=== PATIENT | male | born 1965 | race Caucasian/White ===

== ENCOUNTER 2019-07-14 08:37 | Inpatient (IN) | payer OTHER ==
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
[2019-07-14 09:46] VITALS: BMI 31.7
[2019-07-14] MEDS ORDERED: BISMUTH SUBSALICYLATE 524 MG/30 ML UD PO PRN (09:52)
[2019-07-14] MEDS ORDERED: MELATONIN 5 MG TABLETS PO PRN (09:52)
[2019-07-14] MEDS ORDERED: MAGNESIUM CITRATE 300 ML BOTTLE PO PRN (09:52)
[2019-07-14] MEDS ORDERED: IBUPROFEN 400 MG TABLET (FP) PO PRN (09:52)
[2019-07-14] MEDS ORDERED: hydrOXYzine PAMOATE 25 MG CAPSULE (FP) PO PRN (09:52)
[2019-07-14] MEDS ORDERED: MENTHOL/PHENOL 1 EACH UD MM PRN (09:52)
[2019-07-14] MEDS ORDERED: ACETAMINOPHEN 325 MG TABLET (FP) PO PRN ×2 (09:52)
[2019-07-14] MEDS ORDERED: MAGNESIUM HYDROX 2400MG/30ML ORAL SUSPENSION 30 ML CUP PO PRN (09:52)
[2019-07-14] MEDS ORDERED: MAG HYDROX/AL HYDROX/SIMETH 30 ML UNIT-DOSE CUP PO PRN (09:52)
[2019-07-14] MEDS ORDERED: METHOCARBAMOL 500 MG TABLET PO PRN (09:52)
[2019-07-14] MEDS ORDERED: METHADONE HCL 10 MG TABLET (FOR DETOX USE ONLY) PO ONE (09:52)
[2019-07-14] MEDS ORDERED: NICOTINE 7 MG/24 HOURS TOPICAL PATCH TD SCH (10:00)
[2019-07-14] MEDS ORDERED: PRENATAL VITAMINS W/ FOLIC ACID TABLET (FP) PO SCH (10:00)
[2019-07-14] MEDS ORDERED: KETOCONAZOLE 2% CREAM - 60GM TUBE TP SCH (10:00)
[2019-07-14] MEDS ORDERED: clonazePAM 0.5 MG TABLET PO ONE (11:00)
[2019-07-14] MEDS: cloNIDine HCL 0.1 MG TABLET PO PRN ×2 (11:26→22:14)
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
[2019-07-14 14:55] LABS: HEMATOCRIT 39.3 % (35.4-49); HEMOGLOBIN 13.3 GM/dL (11.7-16.9); MCH 30.4 pg (25.7-33.7); MCHC 33.7 g/dl (32.0-35.9); MEAN CELL VOLUME 90.2 fl (80-96); MEAN PLT VOLUME 12.1 fl (7.5-11.1); PLATELET COUNT 151 K/MM3 (134-434); RBC 4.36 M/mm3 (4.00-5.60); RDW 13.4 % (11.9-15.9); WHITE BLOOD COUNT 8.3 K/mm3 (4.0-10.0)
[2019-07-14 15:14] LABS: ALBUMIN 3.6 g/dl (3.4-5.0); BILIRUBIN,TOTAL 0.4 mg/dL (0.2-1); BLOOD UREA NITROGEN 28.1 mg/dL (7-18); CALCIUM 9.4 mg/dL (8.5-10.1); CREATININE 2.6 mg/dL (0.55-1.3); POTASSIUM 4.5 mmol/L (3.5-5.1); TOT PROT 6.7 g/dl (6.4-8.2)
[2019-07-14] MEDS ORDERED: SUVOREXANT 10 MG TABLET PO ONE (21:00)
[2019-07-14] MEDS ORDERED: THIAMINE HCL 100 MG TABLET (FP) PO SCH (22:00)
[2019-07-14] MEDS ORDERED: SUVOREXANT 10 MG TABLET PO PRN (22:00)
[2019-07-15 05:57] VITALS: BP 127/75; PULSE 48; TEMP 97.5
[2019-07-15] MEDS: cloNIDine HCL 0.1 MG TABLET PO PRN (07:58)
[2019-07-15] MEDS ORDERED: METHADONE (DETOX) 20 MG, METHADONE (DETOX) 5 MG PO ONE (10:00)
[2019-07-15] MEDS ORDERED: POLYETHYLENE GLYCOL 3350 255 GM BTL PO SCH (10:00)
--- NOTE | 2019-07-15 10:06 | DS ---
[facility] Detox Discharge Summary Admission Date: 07/14/19 Discharge Date: 07/15/19 - History Present History: Opioid Dependence Additional Comments: 54 years old male admitted on 07/14/19 for opiate withdrawal sx management positive benzo and opioid urine tox treated with methadone and clonidine prn detox regimen patient reported that he was in methadone program last attended MAT "two weeks" ago patient refuses methadone "I do not want methadone" "I am done with methadone" due to positive methadone urine tox upon admission suboxone detox not appropriate at this time recommend valium detox regimen patient demands klonopin patient rejects klonopin detox regimen that "I am taking klonopin every day" patient refuses klonopin detox patient refuses valium detox patient refuses ativan detox patient refuses clonidine detox "clonidine does not do xxx" that patient demand to take klonopin every day as his doctor prescribed discuss purpose of detox that the patient may return to klonopin 2 mg po daily provider last 30 days filled 06/18/19 Pertinent Past History: patient insists to leave the detox unit due to unable to received klonopin 2 mg po daily patient is alert oriented x 3 speech clearly coherently steady gait refuses cows ciwa refuses discharge physical examine patient walks out the unit independently - Physical Exam Results Vital Signs: Vital Signs Temperature 97.5 F L 07/15/19 05:57 Pulse Rate 48 L 07/15/19 05:57 Respiratory Rate 16 07/15/19 05:57 Blood Pressure 127/75 07/15/19 05:57 O2 Sat by Pulse Oximetry (%) Pertinent Admission Physical Exam Findings: opiate withdrawal sx Laboratory Last Values WBC 8.3 K/mm3 (4.0-10.0) 07/14/19 10:10 RBC 4.36 M/mm3 (4.00-5.60) 07/14/19 10:10 Hgb 13.3 GM/dL (11.7-16.9) 07/14/19 10:10 Hct 39.3 % (35.4-49) 07/14/19 10:10 MCV 90.2 fl (80-96) 07/14/19 10:10 MCH 30.4 pg (25.7-33.7) 07/14/19 10:10 MCHC 33.7 g/dl (32.0-35.9) 07/14/19 10:10 RDW 13.4 % (11.9-15.9) 07/14/19 10:10 Plt Count 151 K/MM3 (134-434) D 07/14/19 10:10 MPV 12.1 fl (7.5-11.1) H 07/14/19 10:10 Sodium 134 mmol/L (136-145) L 07/14/19 10:10 Potassium 4.5 mmol/L (3.5-5.1) 07/14/19 10:10 Chloride 101 mmol/L (98-107) 07/14/19 10:10 Carbon Dioxide 26 mmol/L (21-32) 07/14/19 10:10 Anion Gap 7 MMOL/L (8-16) L 07/14/19 10:10 BUN 28.1 mg/dL (7-18) H 07/14/19 10:10 Creatinine 2.6 mg/dL (0.55-1.3) H 07/14/19 10:10 Est GFR (CKD-EPI)AfAm 31.45 07/14/19 10:10 Est GFR (CKD-EPI)NonAf 27.14 07/14/19 10:10 Random Glucose 112 mg/dL (74-106) H 07/14/19 10:10 Calcium 9.4 mg/dL (8.5-10.1) 07/14/19 10:10 Total Bilirubin 0.4 mg/dL (0.2-1) 07/14/19 10:10 AST 39 U/L (15-37) H 07/14/19 10:10 ALT 43 U/L (13-61) 07/14/19 10:10 Alkaline Phosphatase 115 U/L (45-117) 07/14/19 10:10 Total Protein 6.7 g/dl (6.4-8.2) 07/14/19 10:10 Albumin 3.6 g/dl (3.4-5.0) 07/14/19 10:10 lab noted - Treatment Hospital Course: Detox Protocol Followed Patient has Accepted a Rehab Referral to: return to [facility] provider - Medication Discharge Medications: Ambulatory Orders Sertraline HCl [Zoloft -] 100 mg PO BID PRN 10/03/15 Amlodipine Besylate [Norvasc -] 5 mg PO DAILY 07/14/19 Baclofen 5 mg PO BID 07/14/19 Clonazepam [Klonopin] 2 mg PO DAILY 07/14/19 Ketoconazole 2% Cream [Nizoral 2% Cream -] 1 applic TP DAILY 07/14/19 Polyethylene Glycol 3350 [Miralax (For Bowel Prep) -] 17 gm PO DAILY 07/14/19 Zolpidem Tartrate [Ambien] 10 mg PO HS 07/14/19 Naloxone HCl [Narcan] 4 mg NS ASDIR PRN #1 spray 07/15/19 - Diagnosis (1) Hepatitis C virus infection cured after antiviral drug therapy Current Visit: Yes Status: Resolved (2) Nicotine dependence Current Visit: Yes Status: Acute Qualifiers: Nicotine product type: cigarettes Substance use status: in withdrawal Qualified Code(s): F17.213 - Nicotine dependence, cigarettes, with withdrawal (3) Opioid dependence, uncomplicated Current Visit: Yes Status: Acute (4) Substance induced mood disorder Current Visit: Yes Status: Suspected (5) Hepatitis C Current Visit: Yes Status: Chronic Qualifiers: Viral hepatitis chronicity: chronic Hepatic coma status: without hepatic coma Qualified Code(s): B18.2 - Chronic viral hepatitis C - AMA Did Patient Leave Against Medical Advice: Yes
--- NOTE | 2019-07-15 10:54 | EKG ---
Test Reason : Blood Pressure : / mmHG Vent. Rate : 051 BPM Atrial Rate : 051 BPM P-R Int : 170 ms QRS Dur : 100 ms QT Int : 454 ms P-R-T Axes : 028 051 044 degrees QTc Int : 418 ms SINUS BRADYCARDIA OTHERWISE NORMAL ECG NO PREVIOUS ECGS AVAILABLE Confirmed by REY BHAGAT, FIORELLA ([id number]) on 07/15/2019 10:54:03 AM Referred By: Dillan Veloz Confirmed By:FIORELLA LE MD
[2019-07-16] MEDS ORDERED: METHADONE HCL 10 MG TABLET (FOR DETOX USE ONLY) PO ONE (10:00)
[2019-07-17] MEDS ORDERED: METHADONE (DETOX) 10 MG, METHADONE (DETOX) 5 MG PO ONE (10:00)
[2019-07-18] MEDS ORDERED: METHADONE HCL 10 MG TABLET (FOR DETOX USE ONLY) PO ONE (10:00)
[2019-07-19] MEDS ORDERED: METHADONE HCL 5 MG TABLET (FOR DETOX USE ONLY) PO ONE (06:00)
== END 2019-07-15 09:10 | disposition left against medical advice (07) | DRG 894 ==
LOC: YASAS 08:37 → Y3N 10:20
PROVIDERS: ADMIT Allergy & Immunology; ATTEND Allergy & Immunology
PROC: HZ2ZZZZ Detoxification Services for Substance Abuse Treatment (ICD-10-PCS; principal; 2019-07-14)
DX: F11.23 Opioid dependence with withdrawal (principal); F13.20 Sedative, hypnotic or anxiolytic dependence, uncomplicated; F14.20 Cocaine dependence, uncomplicated; F12.20 Cannabis dependence, uncomplicated; F17.210 Nicotine dependence, cigarettes, uncomplicated; F19.24 Other psychoactive substance dependence with psychoactive substance-induced mood disorder; F43.10 Post-traumatic stress disorder, unspecified; I10 Essential (primary) hypertension; K74.69 Other cirrhosis of liver; G47.00 Insomnia, unspecified; B35.3 Tinea pedis; Z91.19 Patient's noncompliance with other medical treatment and regimen; Z88.0 Allergy status to penicillin; Z86.19 Personal history of other infectious and parasitic diseases; Z86.69 Personal history of other diseases of the nervous system and sense organs
CPT/HCPCS: 36415; 80053; 85027; 86593; 93005; 93010; J0735

== ENCOUNTER 2019-08-25 10:47 | Inpatient (IN) | payer OTHER ==
--- NOTE | 2019-08-25 12:42 | HP ---
COWS - Scale Resting Pulse: 1= [place] 81-100 Sweatin= Chills/Flushing Restless Observation: 1= Difficult to Sit Still Pupil Size: 1= Pupils >than Normal Bone or Joint Aches: 1= Mild Discomfort Runny Nose/ Eye Tearin= Runny Nose/Eyes GI Upset > 30mins: 2= Nausea/Diarrhea Tremor Observation: 2= Slight Tremor Visible Yawning Observation: 1= 1-2x During Session Anxiety or Irritability: 1=Feels Anxious/Irritable Goose Flesh Skin: 3=Piloerection COWS Score: 16 CIWA Score - Admission Criteria OASAS Guidelines: Admission for Medically Managed Detox: Requires at least one of the followin. CIWA greater than 12 2. Seizures within the past 24 hours 3. Delirium tremens within the past 24 hours 4. Hallucinations within the past 24 hours 5. Acute intervention needed for co occurring medical disorder 6. Acute intervention needed for co occurring psychiatric disorder 7. Severe withdrawal that cannot be handled at a lower level of care (continued vomiting, continued diarrhea, abnormal vital signs) requiring intravenous medication and/or fluids 8. Admitting History and Physical - Admission History Source: Patient - Past Medical History Cardiovascular: Yes: HTN Renal/: Yes: Renal Inusuff Psych: Yes: Addictions, Anxiety - Smoking History Smoking history: Former smoker Have you smoked in the past 12 months: Yes Aproximately how many cigarettes per day: 5 If you are a former smoker, when did you quit?: 1 month - Alcohol/Substance Use Hx Alcohol Use: No History of Substance Use: reports: Heroin - Social History Usual Living Arrangement: Yes: Alone, Other (has own apartment) ADL: Support Services (on disability) Admission [facility] Chief Complaint: It's a waste of me, of everything, to keep using - I need to stop Allergies/Adverse Reactions: Allergies Allergy/AdvReac Type Severity Reaction Status Date / Time amoxicillin Allergy Intermediate Hives Verified 08/25/19 11:53 Penicillins Allergy Intermediate Hives Verified 08/25/19 11:53 History of Present Illness: 54 yo gentleman here for detox from opiates. Patient last used opiates three days ago but is having 'awful' withdrawal symptoms- history of overdose three weeks ago - history of black outs, history of seizures. He is worried if he is not admitted he will use heroin. Patient was on methadone program at [facility] for 10 years until July 2019 - he came off it and relapsed. He was in [place] on 08/21/18 for 24 hour psych observation (depression), came out and used on 08/22 (urine tox + bzo only - is Rx clonazepam for PTSD). Patient uses heroin about 3-4 bags intravenously or intranasal and has since his 20s. He is on disability for PTSD, is on meds and sees psych. Given his long history of opiate use and concurrent withdrawal symptoms will give suboxone detox protocol - he is interested in possibly going on a suboxone program when he is discharged. Others' Prescriptions Patient Name: Jose Blake Date: 1965 Address: [address] [place] [address] Sex: Male Rx Written Rx Dispensed Drug Quantity Days Supply Prescriber Name 08/16/2019 08/16/2019 clonazepam 2 mg tablet 30 30 Urmila Mac ([employer]) 08/16/2019 08/16/2019 zolpidem tartrate 10 mg tablet 30 30 Urmila Mac ([employer]) 07/31/2019 07/31/2019 clonazepam 1 mg tablet 28 14 Camilo Atkins MD 07/04/2019 07/04/2019 methylphenidate 20 mg tablet 90 30 Lyubov Garcia MD 07/04/2019 07/04/2019 lorazepam 0.5 mg tablet 120 30 Lyubov Garcia MD Patient Name: Jose Blake Date: 1965 Address: [address] [place], [place] [id number] Sex: Male Rx Written Rx Dispensed Drug Quantity Days Supply Prescriber Name 07/16/2019 07/22/2019 zolpidem tartrate 10 mg tablet 30 30 Hammad Maca ([employer]) 07/16/2019 07/22/2019 clonazepam 2 mg tablet 30 30 Urmila Mac ([employer]) 06/18/2019 06/23/2019 zolpidem tartrate 10 mg tablet 30 30 CalderonHammad Yoona ([employer]) 06/18/2019 06/23/2019 clonazepam 2 mg tablet 30 30 Urmila Mac ([employer]) 05/21/2019 05/24/2019 clonazepam 2 mg tablet 30 30 Robson Hrust ([employer]) 05/21/2019 05/24/2019 zolpidem tartrate 10 mg tablet 30 30 Aris Robson Beckford ([employer]) 04/17/2019 04/25/2019 clonazepam 2 mg tablet 30 30 Calderon-Urmila Loera ([employer]) 04/17/2019 04/25/2019 zolpidem tartrate 10 mg tablet 30 30 Calderon-Hammad Loeraa ([employer]) 03/19/2019 03/27/2019 zolpidem tartrate 10 mg tablet 30 30 Calderon-Evaristo Urmila ([employer]) 03/19/2019 03/27/2019 clonazepam 2 mg tablet 30 30 Calderon-Evaristo Urmila ([employer]) 02/26/2019 02/26/2019 zolpidem tartrate 10 mg tablet 30 30 Calderon-Hammad Loeraa ([employer]) 02/26/2019 02/26/2019 clonazepam 2 mg tablet 30 30 Calderon-Hammad Loeraa ([employer]) 01/19/2019 01/28/2019 zolpidem tartrate 10 mg tablet 30 30 Calderon-Evaristo Urmila ([employer]) 01/19/2019 01/28/2019 clonazepam 2 mg tablet 30 30 Calderon-Evaristo Urmila ([employer]) 12/28/2018 12/30/2018 zolpidem tartrate 10 mg tablet 30 30 Lucaghassan , Kelechi 12/28/2018 12/30/2018 clonazepam 2 mg tablet 30 30 Lucaj, Kelechi 11/30/2018 11/30/2018 clonazepam 2 mg tablet 30 30 Mcgahee, Sam R ([facility]-[employer]) 11/30/2018 11/30/2018 zolpidem tartrate 10 mg tablet 30 30 Mcgahee, Sam R ([facility]-[employer]) 10/24/2018 11/01/2018 clonazepam 2 mg tablet 30 30 Calderon-Evaristo Urmila ([employer]) 10/24/2018 11/01/2018 zolpidem tartrate 10 mg tablet 30 30 Calderon-Evaristo Urmila ([employer]) 10/02/2018 10/02/2018 zolpidem tartrate 10 mg tablet 30 30 Mcgahee, Sam R ([facility]-[employer]) 10/02/2018 10/02/2018 clonazepam 2 mg tablet 30 30 Mcgahee, Sam R ([facility]-[employer]) 08/24/2018 09/02/2018 clonazepam 2 mg tablet 30 30 Urmila Berg ([employer]) 08/24/2018 09/02/2018 zolpidem tartrate 10 mg tablet 30 30 Urmila Berg ([employer]) Exam Limitations: Clinical Condition - Ebola screening Have you traveled outside of the country in the last 21 days: No (N) Have you had contact with anyone from an Ebola affected area: No Do you have a fever: No - Review of Systems Constitutional: Chills, Loss of Appetite, Malaise, Night Sweats, Changes in sleep, Weakness EENT: reports: Nose Congestion Respiratory: reports: No Symptoms reported Cardiac: reports: No Symptoms Reported GI: reports: Diarrhea, Abdominal cramping : reports: No Symptoms Reported Musculoskeletal: reports: Back Pain, Muscle Pain Integumentary: reports: Dryness Neuro: reports: Headache, Tremors Endocrine: reports: No Symptoms Reported Hematology: reports: No Symptoms Reported Psychiatric: reports: Judgement Intact, Mood/Affect Appropiate, Orientated x3, Anxious Other Systems: Reviewed and Negative Patient History - Patient Medical History Hx Anemia: No Hx Asthma: No Hx Chronic Obstructive Pulmonary Disease (COPD): No Hx Cancer: No Hx Cardiac Disorders: Yes (pericarditis 2013) Hx Congestive Heart Failure: No Hx Hypertension: Yes Hx Hypercholesterolemia: No Hx Pacemaker: No HX Cerebrovascular Accident: No Hx Seizures: Yes (drug related 3 weeks ago) Hx Diabetes: No Hx Gastrointestinal Disorders: No Hx Liver Disease: Yes (cirrhosis; hx hep C treated) Hx Genitourinary Disorders: No Hx Sexually Transmitted Disorders: No Hx Renal Disease (ESRD): No Hx Thyroid Disease: No Hx Human Immunodeficiency Virus (HIV): No Hx Hepatitis C: Yes (was treated 2012 and 'cured' ) Hx Depression: Yes (with PTSD - on meds, sees psych - hx hospitalizations) Hx Suicide Attempt: No (ideation) Hx Bipolar Disorder: No Hx Schizophrenia: No - Patient Surgical History Past Surgical History: Yes Hx Neurologic Surgery: No Hx Cataract Extraction: No Hx Cardiac Surgery: No Hx Lung Surgery: No Hx Breast Surgery: No Hx Breast Biopsy: No Hx Abdominal Surgery: No Hx Appendectomy: No Hx Cholecystectomy: No Hx Genitourinary Surgery: No Hx Section: No Hx Orthopedic Surgery: Yes (LEFT ANKLE SX ORIF 2010) Other Surgical History: 16 ULISES IN THE HEAD 2010 Anesthesia Reaction: No - PPD History Date: 09/01/15 Results: 0 mm - Reproductive History Patient is a Female of Child Bearing Age (11 -55 yrs old): No - Smoking Cessation Smoking history: Former smoker Have you smoked in the past 12 months: Yes Aproximately how many cigarettes per day: 5 If you are a former smoker, when did you quit?: 1 month Hx Chewing Tobacco Use: No Initiated information on smoking cessation: No - Substance & Tx. History Hx Alcohol Use: Yes (none x 8 years) Hx Substance Use: Yes Substance Use Type: Heroin Hx Substance Use Treatment: Yes (detox, methadone program) - Substances abused Heroin Substance route: Injection Frequency: 3-6 times per week Amount used: 4 bags Age of first use: 29 Date of last use: 08/22/19 Admission Physical Exam BHS - Vital Signs Vital Signs: Vital Signs - 24 hr 08/25/19 11:58 Temperature 97.9 F Pulse Rate 87 Respiratory 18 Rate Blood Pressure 157/109 H - Physical General Appearance: Yes: Nourished, Appropriately Dressed, Moderate Distress, Tremorous, Anxious HEENTM: Yes: EOMI, Hearing grossly Normal, Normocephalic, Normal Voice, Pharynx Normal, Nasal Congestion Respiratory: Yes: Normal Breath Sounds, No Respiratory Distress Neck: Yes: No masses,lesions,Nodules Breast: Yes: Breast Exam Deferred Cardiology: Yes: Regular Rhythm, Regular Rate Abdominal: Yes: Soft Genitourinary: Yes: Nocturia Back: Yes: Normal Inspection Musculoskeletal: Yes: Gait Steady, Back pain, Muscle Pain, Other (left ankle pain) Extremities: Yes: Tremors, Other Neurological: Yes: Fully Oriented, Alert, Motor Strength 5/5, Normal Mood/Affect , Normal Response Integumentary: Yes: Normal Color, Warm Lymphatic: Yes: Within Normal Limits - Diagnostic (1) Opioid dependence with withdrawal Current Visit: Yes Status: Chronic (2) Cirrhosis Current Visit: Yes Status: Chronic Qualifiers: Hepatic cirrhosis type: other cirrhosis Qualified Code(s): K74.69 - Other cirrhosis of liver (3) History of seizure Current Visit: Yes Status: Chronic (4) PTSD (post-traumatic stress disorder) Current Visit: Yes Status: Chronic Comment: As per self-report. (5) Sedative dependence Current Visit: Yes Status: Chronic Comment: prescribed (denies abusing them ) (6) Tinea pedis Current Visit: Yes Status: Chronic Qualifiers: Laterality: bilateral Qualified Code(s): B35.3 - Tinea pedis (7) Hepatitis C virus infection cured after antiviral drug therapy Current Visit: Yes Status: Inactive Cleared for Admission [facility] - Detox or Rehab [facility] Level of Care: Medically Managed Detox Regimen/Protocol: Suboxone Breathalyzer - Breathalyzer Breathalyzer: 0 Urine Drug Screen - Test Device Lot number: [id number] Expiration date: 04/04/21 - Control Is test valid?: Yes - Results Drug screen NEGATIVE: No Urine drug screen results: BZO-Benzodiazepines Inpatient Rehab Admission - Rehab Decision to Admit Inpatient rehab admission?: No
[2019-08-25] MEDS ORDERED: MAG HYDROX/AL HYDROX/SIMETH 30 ML UNIT-DOSE CUP PO PRN (13:07)
[2019-08-25] MEDS ORDERED: IBUPROFEN 400 MG TABLET (FP) PO PRN (13:07)
[2019-08-25] MEDS ORDERED: ACETAMINOPHEN 325 MG TABLET (FP) PO PRN ×2 (13:07)
[2019-08-25] MEDS ORDERED: MAGNESIUM CITRATE 300 ML BOTTLE PO PRN (13:07)
[2019-08-25] MEDS ORDERED: BACLOFEN 10 MG TABLET (FP) PO PRN (13:07)
[2019-08-25] MEDS ORDERED: MELATONIN 5 MG TABLETS PO PRN (13:07)
[2019-08-25] MEDS ORDERED: hydrOXYzine PAMOATE 25 MG CAPSULE (FP) PO PRN (13:07)
[2019-08-25] MEDS ORDERED: MENTHOL/PHENOL 1 EACH UD MM PRN (13:07)
[2019-08-25] MEDS ORDERED: MAGNESIUM HYDROX 2400MG/30ML ORAL SUSPENSION 30 ML CUP PO PRN (13:07)
[2019-08-25] MEDS ORDERED: BISMUTH SUBSALICYLATE 524 MG/30 ML UD PO PRN (13:07)
[2019-08-25] MEDS ORDERED: BUPRENORPHINE/NALOXONE 8 MG/2 MG FILM PACKET SL ONE (13:13)
[2019-08-25] MEDS ORDERED: POLYETHYLENE GLYCOL 3350 255 GM BTL PO SCH (13:15)
[2019-08-25] MEDS: clonazePAM 0.5 MG TABLET PO PRN ×2 (15:41→21:59)
[2019-08-25] MEDS: amLODIPine BESYLATE 5 MG TABLET (FP) PO SCH (17:01)
[2019-08-25] MEDS: THIAMINE HCL 100 MG TABLET (FP) PO SCH (21:59)
[2019-08-25] MEDS: KETOCONAZOLE 2% CREAM - 60GM TUBE TP SCH ×2 (22:57→22:58)
[2019-08-26] MEDS: clonazePAM 0.5 MG TABLET PO PRN ×4 (04:01→23:09)
--- NOTE | 2019-08-26 07:46 | CONSULT ---
[facility] Psychiatric Consult - Data Date of interview: 08/26/19 Admission source: [facility] Identifying data: Compacting Machine Operator/Tender approached patient for psychiatric consultation. Patient reported feeling tired and preferred to speak to fiction writer at another time. Psychiatric consultation refused. Please reorder psychiatric consultation if requested by patient.
[2019-08-26] MEDS ORDERED: BUPRENORPHINE/NALOXONE 2 MG/0.5 MG FILM PACKET SL ONE (10:00)
[2019-08-26] MEDS: POLYETHYLENE GLYCOL 3350 119 GM BTL PO SCH (10:38)
[2019-08-26 10:39] LABS: HEMATOCRIT 44.3 % (35.4-49); HEMOGLOBIN 14.8 GM/dL (11.7-16.9); MCHC 33.5 g/dl (32.0-35.9); MEAN CELL VOLUME 92.6 fl (80-96); MEAN PLT VOLUME 12.4 fl (7.5-11.1); PLATELET COUNT 120 K/MM3 (134-434); RBC 4.78 M/mm3 (4.00-5.60); RDW 14.9 % (11.9-15.9); WHITE BLOOD COUNT 6.4 K/mm3 (4.0-10.0)
[2019-08-26] MEDS: PRENATAL VITAMINS W/ FOLIC ACID TABLET (FP) PO SCH (10:40)
[2019-08-26] MEDS: amLODIPine BESYLATE 5 MG TABLET (FP) PO SCH (10:40)
--- NOTE | 2019-08-26 10:44 | PN ---
BHS COWS - Scale Resting Pulse: 0= [place] 80 or Below Sweatin= Chills/Flushing Restless Observation: 0= Sits Still Pupil Size: 1= Pupils >than Normal Bone or Joint Aches: 1= Mild Discomfort Runny Nose/ Eye Tearin= Runny Nose/Eyes GI Upset > 30mins: 1= Stomach Cramp Tremor Observation of Outstretched Hands: 2= Slight Tremor Visible Yawning Observation: 1= 1-2x During Session Anxiety or Irritability: 1=Feels Anxious/Irritable Goose Flesh Skin: 3=Piloerection COWS Score: 13 BHS Progress Note (SOAP) Subjective: 54 years old male admitted on 08/25/19 for opiate withdrawal sx management treating with suboxone detox regimen ate breakfast tolerated food and fluid well ambulating on hallway social with peers in day room encourage to picking crew supervisor narcan from pharmacy upon discharged Objective: 08/26/19 10:54 Vital Signs Temperature 99.0 F 08/26/19 09:12 Pulse Rate 80 08/26/19 09:12 Respiratory Rate 18 08/26/19 09:12 Blood Pressure 126/83 08/26/19 09:12 O2 Sat by Pulse Oximetry (%) Laboratory Last Values WBC 6.4 K/mm3 (4.0-10.0) 08/26/19 07:35 RBC 4.78 M/mm3 (4.00-5.60) 08/26/19 07:35 Hgb 14.8 GM/dL (11.7-16.9) 08/26/19 07:35 Hct 44.3 % (35.4-49) 08/26/19 07:35 MCV 92.6 fl (80-96) 08/26/19 07:35 MCH 31.0 pg (25.7-33.7) 08/26/19 07:35 MCHC 33.5 g/dl (32.0-35.9) 08/26/19 07:35 RDW 14.9 % (11.9-15.9) D 08/26/19 07:35 Plt Count 120 K/MM3 (134-434) L D 08/26/19 07:35 MPV 12.4 fl (7.5-11.1) H 08/26/19 07:35 lab noted Assessment: 08/26/19 10:54 opiate withdrawal Plan: suboxone regimen
[2019-08-26 10:54] LABS: ALBUMIN 3.5 g/dl (3.4-5.0); BILIRUBIN,TOTAL 0.6 mg/dL (0.2-1); BLOOD UREA NITROGEN 11.7 mg/dL (7-18); CALCIUM 8.6 mg/dL (8.5-10.1); CREATININE 0.7 mg/dL (0.55-1.3); POTASSIUM 4.3 mmol/L (3.5-5.1); TOT PROT 6.3 g/dl (6.4-8.2)
[2019-08-26] MEDS: KETOCONAZOLE 2% CREAM - 60GM TUBE TP SCH ×2 (11:10→22:17)
[2019-08-26] MEDS: THIAMINE HCL 100 MG TABLET (FP) PO SCH (22:17)
[2019-08-27] MEDS: clonazePAM 0.5 MG TABLET PO PRN ×3 (05:41→19:13)
[2019-08-27] MEDS: PRENATAL VITAMINS W/ FOLIC ACID TABLET (FP) PO SCH (09:51)
[2019-08-27] MEDS: amLODIPine BESYLATE 5 MG TABLET (FP) PO SCH (09:51)
[2019-08-27] MEDS: POLYETHYLENE GLYCOL 3350 119 GM BTL PO SCH (09:52)
[2019-08-27] MEDS: KETOCONAZOLE 2% CREAM - 60GM TUBE TP SCH ×2 (09:52→22:18)
[2019-08-27] MEDS ORDERED: BUPRENORPHINE/NALOXONE 4 MG/1 MG FILM PACKET SL ONE (10:00)
--- NOTE | 2019-08-27 11:14 | PN ---
BHS COWS - Scale Resting Pulse: 0= [place] 80 or Below Sweatin= Chills/Flushing Restless Observation: 0= Sits Still Pupil Size: 1= Pupils >than Normal Bone or Joint Aches: 1= Mild Discomfort Runny Nose/ Eye Tearin= Nasal Congestion GI Upset > 30mins: 1= Stomach Cramp Tremor Observation of Outstretched Hands: 1= Tremor [place], Not Seen Yawning Observation: 2= >3x During Session Anxiety or Irritability: 1=Feels Anxious/Irritable Goose Flesh Skin: 0=Smooth Skin COWS Score: 9 BHS Progress Note (SOAP) Subjective: 54 years old male admitted on 08/25/19 for opiate withdrawal sx management treating with suboxone detox regimen feeling better today discuss the benefits of medication assisted treatment program and encourage picking up narcan from pharmacy Objective: 08/27/19 11:13 Vital Signs Temperature 97.9 F 08/27/19 09:25 Pulse Rate 67 08/27/19 09:25 Respiratory Rate 18 08/27/19 09:25 Blood Pressure 120/83 08/27/19 09:25 O2 Sat by Pulse Oximetry (%) Laboratory Last Values WBC 6.4 K/mm3 (4.0-10.0) 08/26/19 07:35 RBC 4.78 M/mm3 (4.00-5.60) 08/26/19 07:35 Hgb 14.8 GM/dL (11.7-16.9) 08/26/19 07:35 Hct 44.3 % (35.4-49) 08/26/19 07:35 MCV 92.6 fl (80-96) 08/26/19 07:35 MCH 31.0 pg (25.7-33.7) 08/26/19 07:35 MCHC 33.5 g/dl (32.0-35.9) 08/26/19 07:35 RDW 14.9 % (11.9-15.9) D 08/26/19 07:35 Plt Count 120 K/MM3 (134-434) L D 08/26/19 07:35 MPV 12.4 fl (7.5-11.1) H 08/26/19 07:35 Sodium 140 mmol/L (136-145) 08/26/19 07:35 Potassium 4.3 mmol/L (3.5-5.1) 08/26/19 07:35 Chloride 108 mmol/L (98-107) H 08/26/19 07:35 Carbon Dioxide 25 mmol/L (21-32) 08/26/19 07:35 Anion Gap 7 MMOL/L (8-16) L 08/26/19 07:35 BUN 11.7 mg/dL (7-18) 08/26/19 07:35 Creatinine 0.7 mg/dL (0.55-1.3) 08/26/19 07:35 Est GFR (CKD-EPI)AfAm 125.75 08/26/19 07:35 Est GFR (CKD-EPI)NonAf 108.50 08/26/19 07:35 Random Glucose 77 mg/dL (74-106) 08/26/19 07:35 Calcium 8.6 mg/dL (8.5-10.1) 08/26/19 07:35 Total Bilirubin 0.6 mg/dL (0.2-1) 08/26/19 07:35 AST 40 U/L (15-37) H 08/26/19 07:35 ALT 51 U/L (13-61) 08/26/19 07:35 Alkaline Phosphatase 80 U/L (45-117) 08/26/19 07:35 Total Protein 6.3 g/dl (6.4-8.2) L 08/26/19 07:35 Albumin 3.5 g/dl (3.4-5.0) 08/26/19 07:35 RPR Titer Nonreactive (NONREACTIVE) 08/26/19 07:35 lab noted Assessment: 08/27/19 11:13 opiate withdrawal Plan: suboxone regimen
[2019-08-27] MEDS: THIAMINE HCL 100 MG TABLET (FP) PO SCH (22:18)
[2019-08-28] MEDS: clonazePAM 0.5 MG TABLET PO PRN (03:01)
[2019-08-28] MEDS: PRENATAL VITAMINS W/ FOLIC ACID TABLET (FP) PO SCH (09:06)
[2019-08-28] MEDS: amLODIPine BESYLATE 5 MG TABLET (FP) PO SCH (09:06)
[2019-08-28 09:09] VITALS: BP 142/92; PULSE 85; TEMP 96.2
[2019-08-28] MEDS ORDERED: BUPRENORPHINE/NALOXONE 2 MG/0.5 MG FILM PACKET SL ONE (10:00)
[2019-08-28] MEDS: POLYETHYLENE GLYCOL 3350 119 GM BTL PO SCH (10:28)
[2019-08-28] MEDS: KETOCONAZOLE 2% CREAM - 60GM TUBE TP SCH (10:28)
--- NOTE | 2019-08-28 11:23 | DS ---
[facility] Detox Discharge Summary Admission Date: 08/25/19 Discharge Date: 08/28/19 - History Present History: Opioid Dependence, Sedative Dependence Additional Comments: Pt is medically cleared and discharged today. Pt is encouraged to follow-up with an outpatient CD program and also to follow-up with his pmd. Pt verbalized understanding. Pt is alert and oriented x3 and in no acute respiratory distress. Pertinent Past History: h/o HTN and heroin use disorder. - Physical Exam Results Vital Signs: Vital Signs Temperature 96.2 F L 08/28/19 09:08 Pulse Rate 85 08/28/19 09:08 Respiratory Rate 18 08/28/19 09:08 Blood Pressure 142/92 08/28/19 09:08 O2 Sat by Pulse Oximetry (%) Vital Signs 08/28/19 08/28/19 06:16 09:08 Temperature 97.4 F L 96.2 F L Pulse Rate 68 85 Respiratory 18 18 Rate Blood Pressure 120/78 142/92 Laboratory Last Values WBC 6.4 K/mm3 (4.0-10.0) 08/26/19 07:35 RBC 4.78 M/mm3 (4.00-5.60) 08/26/19 07:35 Hgb 14.8 GM/dL (11.7-16.9) 08/26/19 07:35 Hct 44.3 % (35.4-49) 08/26/19 07:35 MCV 92.6 fl (80-96) 08/26/19 07:35 MCH 31.0 pg (25.7-33.7) 08/26/19 07:35 MCHC 33.5 g/dl (32.0-35.9) 08/26/19 07:35 RDW 14.9 % (11.9-15.9) D 08/26/19 07:35 Plt Count 120 K/MM3 (134-434) L D 08/26/19 07:35 MPV 12.4 fl (7.5-11.1) H 08/26/19 07:35 Sodium 140 mmol/L (136-145) 08/26/19 07:35 Potassium 4.3 mmol/L (3.5-5.1) 08/26/19 07:35 Chloride 108 mmol/L (98-107) H 08/26/19 07:35 Carbon Dioxide 25 mmol/L (21-32) 08/26/19 07:35 Anion Gap 7 MMOL/L (8-16) L 08/26/19 07:35 BUN 11.7 mg/dL (7-18) 08/26/19 07:35 Creatinine 0.7 mg/dL (0.55-1.3) 08/26/19 07:35 Est GFR (CKD-EPI)AfAm 125.75 08/26/19 07:35 Est GFR (CKD-EPI)NonAf 108.50 08/26/19 07:35 Random Glucose 77 mg/dL (74-106) 08/26/19 07:35 Calcium 8.6 mg/dL (8.5-10.1) 08/26/19 07:35 Total Bilirubin 0.6 mg/dL (0.2-1) 08/26/19 07:35 AST 40 U/L (15-37) H 08/26/19 07:35 ALT 51 U/L (13-61) 08/26/19 07:35 Alkaline Phosphatase 80 U/L (45-117) 08/26/19 07:35 Total Protein 6.3 g/dl (6.4-8.2) L 08/26/19 07:35 Albumin 3.5 g/dl (3.4-5.0) 08/26/19 07:35 RPR Titer Nonreactive (NONREACTIVE) 08/26/19 07:35 Labs noted. Pertinent Admission Physical Exam Findings: withdrawal symptoms. - Treatment Hospital Course: Detox Protocol Followed, Detoxed Safely, Responded well, Discharged Condition Good - Medication Discharge Medications: Ambulatory Orders Amlodipine Besylate [Norvasc -] 5 mg PO DAILY 07/14/19 Baclofen 5 mg PO BID 07/14/19 Clonazepam [Klonopin] 2 mg PO DAILY 07/14/19 Ketoconazole 2% Cream [Nizoral 2% Cream -] 1 applic TP BID 07/14/19 Polyethylene Glycol 3350 [Miralax 255 gm Btl -] 17 gm PO DAILY 07/14/19 Zolpidem Tartrate [Ambien] 10 mg PO HS 07/14/19 Aripiprazole [Abilify -] 10 mg PO DAILY 08/25/19 Naloxone HCl [Narcan] 4 mg NS ASDIR PRN #1 spray 08/26/19 - Diagnosis (1) Opioid dependence, uncomplicated Current Visit: Yes Status: Acute (2) History of seizure Current Visit: Yes Status: Chronic (3) Sedative dependence Current Visit: Yes Status: Chronic (4) Opiate dependence Current Visit: No Status: Acute Qualifiers: Substance use status: in remission Qualified Code(s): F11.21 - Opioid dependence, in remission (5) Marijuana dependence Current Visit: No Status: Chronic (6) Hypertension Current Visit: Yes Status: Chronic - AMA Did Patient Leave Against Medical Advice: No
== END 2019-08-28 12:03 | disposition home or self-care (01) | DRG 897 ==
LOC: YASAS 10:47 → Y3N 13:51
PROVIDERS: ADMIT Allergy & Immunology; ATTEND Allergy & Immunology
PROC: HZ2ZZZZ Detoxification Services for Substance Abuse Treatment (ICD-10-PCS; principal; 2019-08-25)
DX: F11.23 Opioid dependence with withdrawal (principal); F13.230 Sedative, hypnotic or anxiolytic dependence with withdrawal, uncomplicated; F12.20 Cannabis dependence, uncomplicated; F43.10 Post-traumatic stress disorder, unspecified; I10 Essential (primary) hypertension; B35.3 Tinea pedis; K74.69 Other cirrhosis of liver; Z86.19 Personal history of other infectious and parasitic diseases; Z87.891 Personal history of nicotine dependence; Z86.69 Personal history of other diseases of the nervous system and sense organs; Z88.0 Allergy status to penicillin; Z88.1 Allergy status to other antibiotic agents
CPT/HCPCS: 36415; 80053; 85027; 86593

== ENCOUNTER 2022-05-12 12:54 | Inpatient (IN) | payer OTHER ==
[2022-05-12 16:36] VITALS: BMI 33.5
[2022-05-12] MEDS ORDERED: MAGNESIUM CITRATE 300 ML BOTTLE PO PRN (19:18)
[2022-05-12] MEDS ORDERED: BISMUTH SUBSALICYLATE 524 MG/30 ML PO PRN (19:18)
[2022-05-12] MEDS ORDERED: LOPERAMIDE HCL 2 MG CAPSULE PO PRN (19:18)
[2022-05-12] MEDS ORDERED: METHOCARBAMOL 500 MG TABLET PO PRN (19:18)
[2022-05-12] MEDS ORDERED: MAG HYDROX/AL HYDROX/SIMETH 30 ML UNIT-DOSE CUP PO PRN (19:18)
[2022-05-12] MEDS ORDERED: cloNIDine HCL 0.1 MG TABLET PO PRN (19:18)
[2022-05-12] MEDS ORDERED: DICYCLOMINE HCL 10 MG CAPSULE PO PRN (19:18)
[2022-05-12] MEDS ORDERED: IBUPROFEN 600 MG TABLET (FP) PO PRN (19:18)
[2022-05-12] MEDS ORDERED: BENZOCAINE/MENTHOL (CHLORASEPTIC ) LOZENGE MM PRN (19:18)
[2022-05-12] MEDS ORDERED: IBUPROFEN 400 MG TABLET (FP) PO PRN (19:18)
[2022-05-12] MEDS ORDERED: ONDANSETRON *ODT* 4 MG TABLET SL PRN (19:18)
[2022-05-12] MEDS ORDERED: ACETAMINOPHEN 325 MG TABLET (FP) PO PRN ×2 (19:18)
[2022-05-12] MEDS ORDERED: methaDONE HCL 10 MG TABLET (FOR DETOX USE ONLY) PO ONE (20:20)
[2022-05-12] MEDS: amLODIPine BESYLATE 5 MG TABLET (FP) PO SCH (20:36)
[2022-05-12] MEDS: NICOTINE 14 MG/24 HOURS TOPICAL PATCH TD SCH (20:37)
[2022-05-12] MEDS: diazePAM 5 MG TABLET PO PRN (20:38)
[2022-05-12] MEDS: MELATONIN 5 MG TABLETS PO SCH (21:30)
[2022-05-12] MEDS: THIAMINE HCL 100 MG TABLET (FP) PO SCH (21:30)
[2022-05-12] MEDS: ATORVASTATIN CA 40 MG TABLET (FP) PO SCH (21:30)
[2022-05-12] MEDS: hydrOXYzine PAMOATE 25 MG CAPSULE (FP) PO SCH (21:30)
[2022-05-12] MEDS: diazePAM 5 MG TABLET PO SCH (23:22)
[2022-05-13] MEDS: hydrOXYzine PAMOATE 25 MG CAPSULE (FP) PO SCH ×5 (05:16→22:16)
[2022-05-13] MEDS: diazePAM 5 MG TABLET PO SCH ×4 (05:16→22:16)
[2022-05-13 09:41] LABS: CALCIUM 9.2 mg/dL (8.5-10.1)
[2022-05-13 09:42] LABS: ALBUMIN 3.7 g/dl (3.4-5.0); BLOOD UREA NITROGEN 19.5 mg/dL (7-18)
[2022-05-13 09:45] LABS: CREATININE 0.8 mg/dL (0.55-1.3)
[2022-05-13 09:46] LABS: TOT PROT 6.5 g/dl (6.4-8.2)
[2022-05-13 09:47] LABS: BILIRUBIN,TOTAL 0.5 mg/dL (0.2-1)
[2022-05-13 09:58] LABS: HEMATOCRIT 42.4 % (35.4-49); HEMOGLOBIN 14.4 GM/dL (11.7-16.9); MCH 30.4 pg (25.7-33.7); MCHC 33.9 g/dl (32.0-35.9); MEAN CELL VOLUME 89.5 fl (80-96); MEAN PLT VOLUME 12.6 fl (7.5-11.1); PLATELET COUNT 94 10^3/uL (134-434); RBC 4.74 M/mm3 (4.00-5.60); WHITE BLOOD COUNT 5.6 K/mm3 (4.0-10.0)
[2022-05-13] MEDS: KETOCONAZOLE 2% CREAM - 60GM TUBE TP SCH (10:16)
[2022-05-13] MEDS: POLYETHYLENE GLYCOL (HEALTHYLAX) 3350 17 GM PACKET PO SCH (10:17)
[2022-05-13] MEDS: amLODIPine BESYLATE 5 MG TABLET (FP) PO SCH (10:17)
[2022-05-13] MEDS: PRENATAL VITAMINS W/ FOLIC ACID TABLET (FP) PO SCH (10:17)
[2022-05-13] MEDS: NICOTINE 14 MG/24 HOURS TOPICAL PATCH TD SCH (10:23)
[2022-05-13] MEDS: MAGNESIUM HYDROX 2400MG/30ML ORAL SUSPENSION 30 ML CUP PO PRN (18:41)
[2022-05-13] MEDS: ARIPiprazole 10 MG TABLET PO SCH (22:16)
[2022-05-13] MEDS: THIAMINE HCL 100 MG TABLET (FP) PO SCH (22:17)
[2022-05-13] MEDS: ATORVASTATIN CA 40 MG TABLET (FP) PO SCH (22:17)
[2022-05-13] MEDS: MELATONIN 5 MG TABLETS PO SCH (22:17)
[2022-05-14] MEDS: diazePAM 5 MG TABLET PO SCH ×3 (05:24→22:07)
[2022-05-14] MEDS: hydrOXYzine PAMOATE 25 MG CAPSULE (FP) PO SCH ×5 (05:25→22:07)
[2022-05-14] MEDS ORDERED: methaDONE HCL 10 MG TABLET (FOR DETOX USE ONLY) PO ONE (10:00)
[2022-05-14] MEDS: NICOTINE 14 MG/24 HOURS TOPICAL PATCH TD SCH (10:33)
[2022-05-14] MEDS: amLODIPine BESYLATE 5 MG TABLET (FP) PO SCH (10:35)
[2022-05-14] MEDS: KETOCONAZOLE 2% CREAM - 60GM TUBE TP SCH (10:35)
[2022-05-14] MEDS: PRENATAL VITAMINS W/ FOLIC ACID TABLET (FP) PO SCH (10:35)
[2022-05-14] MEDS: POLYETHYLENE GLYCOL (HEALTHYLAX) 3350 17 GM PACKET PO SCH (10:35)
[2022-05-14] MEDS: NICOTINE 10 MG CARTRIDGE (INHALER) IH PRN (14:37)
[2022-05-14] MEDS: diazePAM 5 MG TABLET PO PRN (17:01)
[2022-05-14] MEDS: ATORVASTATIN CA 40 MG TABLET (FP) PO SCH (22:07)
[2022-05-14] MEDS: MELATONIN 5 MG TABLETS PO SCH (22:07)
[2022-05-14] MEDS: THIAMINE HCL 100 MG TABLET (FP) PO SCH (22:07)
[2022-05-14] MEDS: ARIPiprazole 10 MG TABLET PO SCH (22:07)
[2022-05-15] MEDS: hydrOXYzine PAMOATE 25 MG CAPSULE (FP) PO SCH ×5 (05:07→22:06)
[2022-05-15] MEDS: diazePAM 5 MG TABLET PO SCH ×2 (05:07→17:35)
[2022-05-15] MEDS: diazePAM 5 MG TABLET PO PRN ×2 (09:06→13:41)
[2022-05-15] MEDS: amLODIPine BESYLATE 5 MG TABLET (FP) PO SCH (10:26)
[2022-05-15] MEDS: KETOCONAZOLE 2% CREAM - 60GM TUBE TP SCH (10:28)
[2022-05-15] MEDS: PRENATAL VITAMINS W/ FOLIC ACID TABLET (FP) PO SCH (10:28)
[2022-05-15] MEDS: POLYETHYLENE GLYCOL (HEALTHYLAX) 3350 17 GM PACKET PO SCH (11:10)
[2022-05-15] MEDS: NICOTINE 14 MG/24 HOURS TOPICAL PATCH TD SCH (11:12)
[2022-05-15] MEDS: NICOTINE 10 MG CARTRIDGE (INHALER) IH PRN (12:35)
[2022-05-15] MEDS: THIAMINE HCL 100 MG TABLET (FP) PO SCH (22:06)
[2022-05-15] MEDS: ATORVASTATIN CA 40 MG TABLET (FP) PO SCH (22:06)
[2022-05-15] MEDS: ARIPiprazole 10 MG TABLET PO SCH (22:06)
[2022-05-15] MEDS: MELATONIN 5 MG TABLETS PO SCH (22:06)
[2022-05-16] MEDS: hydrOXYzine PAMOATE 25 MG CAPSULE (FP) PO SCH ×5 (05:34→22:03)
[2022-05-16] MEDS ORDERED: diazePAM 5 MG TABLET PO ONE (06:00)
[2022-05-16] MEDS ORDERED: methaDONE HCL 10 MG TABLET (FOR DETOX USE ONLY) PO ONE (10:00)
[2022-05-16] MEDS: PRENATAL VITAMINS W/ FOLIC ACID TABLET (FP) PO SCH (10:37)
[2022-05-16] MEDS: NICOTINE 10 MG CARTRIDGE (INHALER) IH PRN ×2 (10:37→19:05)
[2022-05-16] MEDS: POLYETHYLENE GLYCOL (HEALTHYLAX) 3350 17 GM PACKET PO SCH (10:37)
[2022-05-16] MEDS: amLODIPine BESYLATE 5 MG TABLET (FP) PO SCH (10:38)
[2022-05-16] MEDS: NICOTINE 14 MG/24 HOURS TOPICAL PATCH TD SCH (11:16)
[2022-05-16] MEDS: KETOCONAZOLE 2% CREAM - 60GM TUBE TP SCH (11:16)
[2022-05-16] MEDS: MAGNESIUM HYDROX 2400MG/30ML ORAL SUSPENSION 30 ML CUP PO PRN (14:57)
[2022-05-16] MEDS: ATORVASTATIN CA 40 MG TABLET (FP) PO SCH (22:02)
[2022-05-16] MEDS: ARIPiprazole 10 MG TABLET PO SCH (22:03)
[2022-05-16] MEDS: MELATONIN 5 MG TABLETS PO SCH (22:03)
[2022-05-16] MEDS: THIAMINE HCL 100 MG TABLET (FP) PO SCH (22:03)
[2022-05-17] MEDS: hydrOXYzine PAMOATE 25 MG CAPSULE (FP) PO SCH (05:27)
[2022-05-17 09:50] VITALS: BP 147/80; PULSE 84; RESP 19; TEMP 98.1
== END 2022-05-17 11:03 | disposition home or self-care (01) | DRG 897 ==
LOC: YASAS 12:54 → Y3N 18:52
PROVIDERS: ADMIT Allergy & Immunology; ATTEND Family Medicine Addiction Medicine
PROC: HZ2ZZZZ Detoxification Services for Substance Abuse Treatment (ICD-10-PCS; principal; 2022-05-12)
DX: F11.23 Opioid dependence with withdrawal (principal); F13.20 Sedative, hypnotic or anxiolytic dependence, uncomplicated; F12.20 Cannabis dependence, uncomplicated; F19.24 Other psychoactive substance dependence with psychoactive substance-induced mood disorder; F43.10 Post-traumatic stress disorder, unspecified; I10 Essential (primary) hypertension; K74.60 Unspecified cirrhosis of liver; B35.3 Tinea pedis; Z86.19 Personal history of other infectious and parasitic diseases; Z86.79 Personal history of other diseases of the circulatory system; Z88.0 Allergy status to penicillin
CPT/HCPCS: 36415; 80053; 85027; 86780; C9803-CS; U0003; U0005